=== PATIENT | female | born 1950 | race Caucasian/White ===

== ENCOUNTER 2019-01-06 16:37 | Inpatient (IN) ==
[2019-01-06 21:25] LABS: HEMATOCRIT 34.8 % (37.0-47.0); HEMOGLOBIN 11.5 g/dL (12.0-16.0); MCH 30.2 PG (27-31); MCV 91.3 FL (81-99); MPV 10.4 FL (7.4-10.4); RBC 3.81 XMIL (4.2-5.4); RDW 12.3 % (11.5-14.5); WBC 21.45 X1000 (4.8-10.8)
[2019-01-06 21:37] LABS: ALB/GLOB RATIO 0.7; ALBUMIN 3.4 g/dL (3.5-5.0); C REACTIVE PROT QUANT 88.41 mg/L (0.00-5.00); CALCIUM 10.1 mg/dL (8.8-10.2); TOTAL BILIRUBIN 0.29 mg/dL (0.20-1.00)
[2019-01-06] MEDS: CELEBREX PO SCH (21:58)
[2019-01-06] MEDS: APRESOLINE PO SCH (21:58)
[2019-01-06] MEDS: SEROQUEL PO SCH (21:58)
[2019-01-06] MEDS: ZYRTEC PO SCH (21:58)
[2019-01-06] MEDS: DESYREL PO SCH (21:59)
[2019-01-06] MEDS: SYNTHROID PO SCH (21:59)
[2019-01-06] MEDS: ZOSYN 3.375 GM in NS 50 ML IV SCH (22:43)
[2019-01-06] MEDS: COREG PO SCH (22:43)
[2019-01-06] MEDS: LEVAQUIN 500 MG/D5W 500 MG/100 ML IVPB IV SCH (23:19)
--- NOTE | 2019-01-07 01:12 | HISTORY AND PHYSICAL ---
CHIEF COMPLAINT: Complains of cough, fever and left-sided chest pain for the last few days. HISTORY OF PRESENT ILLNESS: She is a 68-year-old white female who came to my office with prior pseudomonas infection in the right middle lobe, possible mycobacterium, under the care of Dr. Earl. Chest x-ray in my office showed left lower lobe infiltrate as well as right lower lobe and middle lobe. She has extensive pleurisy. Basically admitted to the hospital with acute multilobular pneumonia. Dr. Earl was consulted. The patient was started on low dose of IV steroids and broad spectrum of antibiotics. 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 PAST SURGICAL HISTORY: Benign breast biopsies; splenectomy; hysterectomy, abdominal with cervical neck suspension in 2016; back surgery, L4-L5 fusion as well as spinal rods with thoracic spine by Dr. Ackerman. MEDICATIONS: Synthroid 175 mcg daily; Seroquel 200 daily; Hyzaar 50/12.5 two in the morning; Premarin 0.4 mg daily; Depakote 750 in the morning; cetirizine 10 daily; hydralazine 100 daily; trazodone 100 daily; Coreg 6.25 p.o. b.i.d.; Celebrex 200 p.o. b.i.d.; [place] 7.5 q.6 as needed; tizanidine 4 mg b.i.d.; Cymbalta 20 daily. ALLERGIES: Not known. HEALTH MAINTENANCE: Pneumococcal vaccine , 02/20/2018. Tetanus in 2001. Influenza vaccine in 05/2018. Mammography 08/2018. Colonoscopy 03/2008. SOCIAL HISTORY: Single, . Two children. Lives in [place]. No smoking. No alcohol. 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 FAMILY HISTORY: Father at the age of 78. Mother at the age of 90. REVIEW OF SYSTEMS: HEENT: No headache, no vision problem. No earache. No sore throat. Neck has no goiter. No lymphadenopathy. No bruit. Cardiopulmonary: Coughing, low- grade fever and left-sided chest pain. GI: No nausea, vomiting, abdominal pain. : No history of hesitancy, frequency or dysuria. Left flank pain. Neurologic: No focal symptoms or weakness. PHYSICAL EXAMINATION: VITAL SIGNS: Temperature is 97.7 degrees, blood pressure is high. Five feet 8 inches, 135 pounds. HEENT: Atraumatic, normocephalic. Pupils equal and reactive to light. TMs are normal. Nose and throat congested. NECK: Supple. No lymphadenopathy. No goiter. CHEST: Bilateral air entry with pleurisy and crackles. HEART: Sounds are regular, tachycardic. ABDOMEN: Belly is soft, nontender. Good bowel sounds. EXTREMITIES: No peripheral edema or cyanosis. NEUROLOGIC: No obvious neurological deficits. DIAGNOSTIC DATA: Chest x-ray: Multilobar pneumonia. LABORATORY DATA: White cell count 20, hematocrit 34.8, platelets 830,000. The rest of the labs are pending. ASSESSMENT AND PLAN: 1. A 68-year-old white female admitted to the hospital with history of splenectomy, autoimmune hepatitis, on immunosuppressive drugs, came in with multilobar pneumonia. History of pseudomonas in the past. Plan is Dr. Earl consult. Oxygen as needed. Intravenous Zosyn and intravenous Levaquin. 2. Bipolar disorder, on Depakote and Seroquel. 3. Hypothyroidism, on Synthroid. 4. Hypertension, on Hyzaar, hydralazine and Coreg. 5. Autoimmune hepatitis/rheumatoid and psoriatic, on Celebrex. 6. Bronchiectasis, chronic, in the right middle lobe. Seen by Dr. Earl and Dr. Ayala. 7. Chronic back pain, status post lumbar fusion by Dr. Ackerman. 8. Chronic pain, with [place]. 9. Status post cystocele repair, stable. 10. Reconcile home medicines. Discussed with Dr. Earl. Follow up on the pending labs. cc: Bryant Byrne MD [facility]ENTERKeisha
[2019-01-07] MEDS: ZOSYN 3.375 GM in NS 50 ML IV SCH ×4 (03:22→21:18)
[2019-01-07] MEDS ORDERED: CATAPRES PO ONE (03:48)
[2019-01-07] MEDS: COREG PO SCH ×3 (06:16→21:20)
[2019-01-07] MEDS ORDERED: ADVAIR 250/50 DISKUS INH SCH (07:30)
[2019-01-07] MEDS ORDERED: DEPAKOTE ER PO SCH (09:00)
[2019-01-07] MEDS ORDERED: SOLU-MEDROL IV SCH (09:00)
[2019-01-07] MEDS: ZANAFLEX PO SCH ×2 (09:10→21:20)
[2019-01-07] MEDS: NORCO-7.5 PO PRN ×2 (09:11→21:18)
[2019-01-07] MEDS: CELEBREX PO SCH ×2 (09:11→21:20)
[2019-01-07] MEDS: CYMBALTA PO SCH (09:11)
[2019-01-07] MEDS: HYZAAR 50/12.5 MG PO SCH (09:12)
--- NOTE | 2019-01-07 10:13 | Diag Imaging Result Doc PS360 ---
CHEST-2 VIEWS - 01/07/2019 INDICATION: hypoxia COMPARISON: 03/24/2018 FINDINGS: There are stable extensive spine fusion rods. There are new multifocal infiltrates in the lingula, left lower lobe, and right middle lobe. Lungs are hyperexpanded compatible with COPD. No pneumothorax or significant pleural effusion. Heart size is normal. IMPRESSION: Multilobar bilateral pneumonia. Electronically signed by Ibrahima Barragan 01/07/2019 10:10 AM
[2019-01-07] MEDS ORDERED: DILAUDID IV ONE (15:37)
[2019-01-07] MEDS: DUONEB (A & A) INH PRN (19:55)
[2019-01-07] MEDS: LEVAQUIN 500 MG/D5W 500 MG/100 ML IVPB IV SCH (21:18)
[2019-01-07] MEDS: SYNTHROID PO SCH (21:19)
[2019-01-07] MEDS: DESYREL PO SCH (21:19)
[2019-01-07] MEDS: APRESOLINE PO SCH (21:20)
[2019-01-07] MEDS: ZYRTEC PO SCH (21:20)
[2019-01-07] MEDS: SEROQUEL PO SCH (21:20)
[2019-01-07] MEDS: DEPAKOTE ER PO SCH (21:20)
[2019-01-07] MEDS: PREMARIN PO SCH (21:21)
--- NOTE | 2019-01-07 21:22 | PROGRESS NOTE ---
DATE: 01/07/2019 SUBJECTIVE: The patient is a little bit anxious, not able to sleep, headache, chronic pain and reconcile home medicine, waiting to be seen by Dr. Earl. OBJECTIVE: Vital signs: Low-grade fever. Blood pressure is high and pulse oximetry 97 percent. HEENT: Exam within normal limits. Respiratory: Extensive pleurisy. Crackles in the left base. Cardiovascular: Heart sounds are regular. Abdomen: Belly is soft, nontender. Neurological: No neurological deficits. INVESTIGATIONS: CRP was high. ProBNP was normal. ASSESSMENT AND PLAN: 1. Multilobar pneumonia. Continue IV Zosyn and Levaquin. 2. Hypertension. We will use hydralazine as needed along with home medicine. 3. Reconcile home medications. 4. Hypothyroidism on Synthroid. 5. History of bipolar disorder on current medications, and we will repeat the labs in the morning. 6. Discussed the plan of care with the family at bedside, and will follow up. LEVEL OF DOCUMENTATION: 25 minutes. cc: Bryant Byrne MD
[2019-01-07] MEDS: APRESOLINE IV PRN (23:49)
--- NOTE | 2019-01-08 02:01 | PULMONOLOGY CONSULTATION ---
DATE: 01/06/2019 REASON FOR CONSULTATION: Pneumonia and fevers. HISTORY OF PRESENT ILLNESS: Ms Rabago is a 68-year-old white female with a history of autoimmune hepatitis, prior splenectomy, and remote tobacco use, who was diagnosed with mycobacterium avium complex disease approximately 3 years ago. She did receive 3 antibiotics for this process. In March 2018, she was admitted with bilateral pulmonary infiltrates. Pulmonary consultation was performed by this practitioner and she underwent a bronchoscopy on 01/23/2018, which revealed gross purulence throughout the tracheobronchial tree. All cultures revealed Pseudomonas aeruginosa. All AFB smears were negative for AFB, and cultures did not grow Mycobacterium avium complex. She did improve with appropriate antipseudomonal treatment. The patient was evaluated by this practitioner in October. Chest x-ray, at that time, revealed chronic changes but no acute infiltrates. The patient was evaluated by Dr. Byrne, complaining of new onset fevers and left-sided chest pain. Chest x-ray was performed, which reveals new multifocal infiltrates in the lingula, left lower lobe, and right middle lobe. PAST MEDICAL HISTORY/PROBLEM LIST: 1. Multilobar pneumonia, as per above. 2. Prior treatment for Mycobacterium avium complex disease with negative bronchoscopic cultures in January 2018, as per above. 3. Autoimmune hepatitis, previously on Imuran. 4. Status post splenectomy. 5. Status post hysterectomy. 6. Bladder sling with mesh repair. 7. Cystocele repair. 8. Hypertension. 9. Status post back surgery with multiple rods present. 10. Status post hand surgery. 11. Status post toe surgery. 12. Suprasellar mass noted on CT scan in March 2010. 13. Episode of helen during previous hospitalization 1 year ago. SOCIAL HISTORY: Minimal tobacco history. No alcohol use. FAMILY HISTORY: Positive for strokes, dyslipidemia, diabetes, and hypertension. REVIEW OF SYSTEMS: Notable for fatigue, cough with minimal sputum, pleuritic chest pain, fevers, generalized weakness. PHYSICAL EXAMINATION: General: Reveals a thin white female with a BMI of 20, who does report left-sided pain with movement or cough. Vital signs: Blood pressure 159/101, heart rate 88, respiratory rate 20, oxygen saturation 97% on room air. HEENT: Pupils are equal and reactive. Oropharynx is clear. Neck: Supple. Chest: Reveals bilateral rhonchi with crackles at the left base. Cardiac: S1, S2. Abdomen: Soft. Extremities: Without edema. LABORATORIES: White blood count 21.45, hemoglobin 11.5, platelet count 830,000. Chest x-ray as per HPI. Urine culture is growing a gram-negative mariajose. No blood cultures identified. IMPRESSION: A 68-year-old with prior multilobar pneumonia, prior splenectomy, who presents with fevers, leukocytosis, multilobar pneumonia. The patient's chest x-ray had not changed in October, and this represents a significant change. With the onset of fevers, marked change in x-ray, this likely represents an active bacterial infection. The patient has previously been cultured with Pseudomonas and this organism is also suspected. The patient's prior cultures 1 year ago were negative for AFB, and the rapid progression of her symptoms would not be typical for a Mycobacterium organism. RECOMMENDATIONS: 1. Increase Zosyn dose to 4.5 g q.6 hours, which is the pseudomonal dosing regimen. 2. Continue Levaquin. 3. Consider tapering steroids if she develops signs of helen. 4. Continue bronchial hygiene. 5. Follow clinical course. If she does not have expected improvement, then bronchoscopy will be considered. cc: MD Bryant Herron MD
[2019-01-08] MEDS: NORCO-7.5 PO PRN ×2 (04:33→18:23)
[2019-01-08] MEDS: ZOSYN 4.5 GM in NS 100 ML IV SCH ×4 (06:19→23:17)
[2019-01-08 06:54] LABS: BASO# 0.03 X1000 (0.0-0.2); BASO% 0.2 % (0.0-0.8); EOS# 0.02 X1000 (0.0-0.7); EOS% 0.1 % (0.0-10.0); HEMATOCRIT 30.9 % (37.0-47.0); HEMOGLOBIN 10.5 g/dL (12.0-16.0); IMM GRAN% 0.6 % (0.0-0.5); LYMPH# 2.91 X1000 (1.2-3.4); LYMPH% 17.7 % (20.5-51.1); MCH 30.4 PG (27-31); MCV 89.6 FL (81-99); MONO# 2.22 X1000 (0.11-0.59); MONO% 13.5 % (1.7-9.3); NEUT# 11.12 X1000 (1.4-6.5); NEUT% 67.9 % (42.2-75.2); PLT 697 X1000 (130-400); RBC 3.45 XMIL (4.2-5.4)
[2019-01-08 07:13] LABS: CALCIUM 8.8 mg/dL (8.8-10.2); CREATININE 1.1 mg/dL (0.5-0.9); POTASSIUM 4.2 mmol/L (3.5-5.1)
[2019-01-08] MEDS: DUONEB (A & A) INH PRN ×2 (08:48→15:58)
[2019-01-08] MEDS: COREG PO SCH ×2 (09:13→19:55)
[2019-01-08] MEDS: ZANAFLEX PO SCH ×2 (09:13→19:55)
[2019-01-08] MEDS: CYMBALTA PO SCH (09:13)
[2019-01-08] MEDS: HYZAAR 50/12.5 MG PO SCH (09:13)
[2019-01-08] MEDS: CELEBREX PO SCH ×2 (09:13→19:56)
[2019-01-08] MEDS: APRESOLINE IV PRN ×2 (09:28→14:26)
[2019-01-08] MEDS: SOLU-MEDROL IV SCH (09:45)
[2019-01-08] MEDS: NS 1,000 ML IV SCH ×2 (09:46→23:17)
[2019-01-08] MEDS ORDERED: KLONOPIN PO SCH ×2 (17:00)
[2019-01-08] MEDS ORDERED: KLONOPIN PO PRN (17:01)
[2019-01-08] MEDS: KLONOPIN PO PRN ×2 (17:06→23:50)
[2019-01-08] MEDS ORDERED: CATAPRES PO ONE (18:10)
[2019-01-08] MEDS: LEVAQUIN 500 MG/D5W 500 MG/100 ML IVPB IV SCH (19:53)
[2019-01-08] MEDS: APRESOLINE PO SCH (19:54)
[2019-01-08] MEDS: ZYRTEC PO SCH (19:55)
[2019-01-08] MEDS: SEROQUEL PO SCH (19:55)
[2019-01-08] MEDS: SYNTHROID PO SCH (19:56)
[2019-01-08] MEDS: PREMARIN PO SCH (19:56)
[2019-01-08] MEDS: DEPAKOTE ER PO SCH (19:56)
[2019-01-08] MEDS: DESYREL PO SCH (20:21)
--- NOTE | 2019-01-09 02:11 | PROGRESS NOTE ---
DATE: 01/08/2019 SUBJECTIVE: The patient is confused. Blood pressure is running high. Nonproductive cough. Pain is adequately controlled. I appreciate Dr. Earl's consult. PHYSICAL EXAMINATION: Vital signs: Temperature is 97 degrees, blood pressure is 160/102. Respiratory: She is not in respiratory distress. Slightly dry. Decreased pleurisy. Crackles on the lung base. Rest of the exam is benign. INVESTIGATIONS: White cell count 16, hematocrit 30.9, platelets 697,000. Sedimentation rate is 110. Sodium 124, potassium 4.2, BUN 26, creatinine 1.1. Urine cultures grew E coli. ASSESSMENT AND PLAN: 1. Multilobar pneumonia, community-acquired. Immunosuppressive drugs. Aggressive IV antibiotics. Incentive spirometry. 2. Hyponatremia due to dehydration. Continue IV fluids. 3. Urinary tract infection. Sensitive to Zosyn. 4. Escherichia coli. Extended spectrum beta-lactamase negative. 5. Uncontrolled hypertension. Will use the clonidine and hydralazine as needed. 6. History of bipolar disorder, manic phase. I agree with Dr. Earl, I am going to cut down the prednisone IV 20 mg daily. 7. Repeat the labs in the morning and will follow up. LEVEL OF DOCUMENTATION: 25 minutes. cc: Bryant Byrne MD
[2019-01-09] MEDS: CELEBREX PO SCH ×3 (02:16→20:52)
[2019-01-09] MEDS: PREMARIN PO SCH ×2 (02:16→20:53)
[2019-01-09] MEDS: SEROQUEL PO SCH ×2 (02:16→20:51)
[2019-01-09] MEDS: APRESOLINE PO SCH ×2 (02:16→20:51)
[2019-01-09] MEDS: COREG PO SCH ×3 (02:16→20:52)
[2019-01-09] MEDS: DEPAKOTE ER PO SCH ×2 (02:16→20:52)
[2019-01-09] MEDS: SYNTHROID PO SCH ×2 (02:17→20:52)
[2019-01-09] MEDS: ZANAFLEX PO SCH ×3 (02:17→20:53)
[2019-01-09] MEDS: ZYRTEC PO SCH ×2 (02:17→20:52)
[2019-01-09] MEDS: ZOSYN 4.5 GM in NS 100 ML IV SCH ×4 (05:52→23:31)
[2019-01-09] MEDS: APRESOLINE IV PRN ×2 (05:55→16:09)
[2019-01-09 07:32] LABS: BASO# 0.06 X1000 (0.0-0.2); BASO% 0.4 % (0.0-0.8); EOS# 0.04 X1000 (0.0-0.7); EOS% 0.3 % (0.0-10.0); HEMATOCRIT 31.6 % (37.0-47.0); HEMOGLOBIN 10.4 g/dL (12.0-16.0); IMM GRAN# 0.09 X1000 (0.0-0.04); IMM GRAN% 0.6 % (0.0-0.5); LYMPH% 21.9 % (20.5-51.1); MCH 30.1 PG (27-31); MCHC 32.9 g/dL (33-37); MCV 91.6 FL (81-99); MONO# 2.36 X1000 (0.11-0.59); MONO% 15.7 % (1.7-9.3); NEUT# 9.22 X1000 (1.4-6.5); NEUT% 61.1 % (42.2-75.2); PLT 639 X1000 (130-400); RBC 3.45 XMIL (4.2-5.4); RDW 12.1 % (11.5-14.5); WBC 15.07 X1000 (4.8-10.8)
[2019-01-09 07:36] LABS: CALCIUM 8.9 mg/dL (8.8-10.2); CREATININE 1.1 mg/dL (0.5-0.9); POTASSIUM 3.8 mmol/L (3.5-5.1)
[2019-01-09 07:50] LABS: LYMPHS 23 % (21-51); MONO 16 % (1-9); SEGS 61 % (42-75)
--- NOTE | 2019-01-09 08:26 | PULMONOLOGY PROGRESS NOTE ---
DATE: 01/08/2019 SUBJECTIVE: The patient is awake and alert. She does report headache earlier today. She has had some fluctuating blood pressures along with pain. OBJECTIVE: Vital Signs: The patient has been afebrile for the last 24 hours. Blood pressure 1/0 6, chloride 167/102, heart rate 61, respiratory rate 18, oxygen saturation 97% HEENT pupils are equal and reactive. Oropharynx is clear neck is supple chest reveals crackles bilaterally cardiac exam regular rate and rhythm abdomen is soft extremities without edema. LABORATORIES: White blood count has decreased to 16.4, hemoglobin 10.5, platelet count 697,000 sodium 124, potassium 4.2, chloride 88, bicarbonate 37, BUN 26, creatinine 1.1. TSH is low at 0.8. Urine culture reveals E coli. Sputum culture has been done, collected. IMPRESSION: A 68-year-old with remote history of Mycobacterium complex disease with admission last year with all cultures from bronchoscopy revealing Pseudomonas aeruginosa. She now has bilateral infiltrates. The patient has fevers, hypertension, iatrogenic hyperthyroidism, anxiety/component of helen, and headache. RECOMMENDATIONS: 1. Continue current antibiotic regimen. 2. Chest x-ray tomorrow. 3. Follow-up sodium level following initiation of saline. 4. Continue bronchial hygiene. 5. If the patient does not improve, bronchoscopy will be considered next week. cc: MD Bryant Herron MD
[2019-01-09] MEDS: DUONEB (A & A) INH PRN ×2 (08:34→16:55)
[2019-01-09] MEDS: CYMBALTA PO SCH (09:06)
[2019-01-09] MEDS: SOLU-MEDROL IV SCH (09:06)
[2019-01-09] MEDS: HYZAAR 50/12.5 MG PO SCH (09:06)
--- NOTE | 2019-01-09 09:26 | Diag Imaging Result Doc PS360 ---
CHEST-2 VIEWS - 01/09/2019 INDICATION: abnormal exam COMPARISON: 01/07/2019 FINDINGS: There is worsening mild infiltrate in the right lower lobe with loss of the right hemidiaphragm. There is some stable right middle lobe and lingular infiltrate. Heart size remains normal. No pneumothorax or significant pleural effusion. IMPRESSION: Worsening infiltrate in the right lower lobe. Multilobar bilateral infiltrate. Electronically signed by Ibrahima Barragan 01/09/2019 9:24 AM
[2019-01-09] MEDS: NORCO-7.5 PO PRN ×2 (10:29→22:18)
[2019-01-09] MEDS: NS 1,000 ML IV SCH ×3 (12:32→23:31)
[2019-01-09] MEDS: KLONOPIN PO PRN (18:56)
--- NOTE | 2019-01-09 19:59 | PROGRESS NOTE ---
DATE: 01/09/2019 SUBJECTIVE: Patient is very anxious and complains of feet pain and elevated blood pressure. She has bilateral lateral malleolus crusted lesions, and decreased cough, decreased pain. OBJECTIVE: Temperature is 97 degrees, blood pressure is 154/83. Very anxious. Decreased pleurisy. Heart sounds are regular. Rest of the exam is benign. INVESTIGATIONS: White cell count 15, hematocrit 31.6, platelets 639,000. Sodium 128, potassium 3.8, BUN 23, creatinine 1.9. Free T4 is slightly high at 1.97. TSH is low. Chest x-ray: Stable multilobar infiltrates. ASSESSMENT AND PLAN: 1. Multilobar bilateral pneumonia, previously Pseudomonas aeruginosa. Aggressive treatment with Levaquin and Zosyn. 2. Urinary tract infection due to Escherichia coli. Continue on intravenous Zosyn. 3. Bilateral lateral malleolus skin ulcers. She is going to follow up with performance improvement coordinator. 4. Hyponatremia, on intravenous fluids. Follow up on BMP in the morning. 5. Hypothyroidism, slightly elevated. We can decrease the Synthroid to 150 mcg once a day. 6. Elevated blood pressure due to the pain. We will use the clonidine and hydralazine as needed for systolic blood pressure more than 160, and patient is anxious to go home and continue present treatment. LEVEL OF DOCUMENTATION: 25 minutes. cc: Bryant Byrne MD
[2019-01-09] MEDS: DESYREL PO SCH (20:51)
[2019-01-09] MEDS: LEVAQUIN 500 MG/D5W 500 MG/100 ML IVPB IV SCH (20:53)
[2019-01-10] MEDS: APRESOLINE IV PRN ×2 (04:56→12:34)
[2019-01-10] MEDS: ZOSYN 4.5 GM in NS 100 ML IV SCH ×4 (06:32→23:54)
[2019-01-10 07:25] LABS: BASO# 0.03 X1000 (0.0-0.2); BASO% 0.2 % (0.0-0.8); EOS# 0.03 X1000 (0.0-0.7); EOS% 0.2 % (0.0-10.0); HEMATOCRIT 31.2 % (37.0-47.0); HEMOGLOBIN 10.6 g/dL (12.0-16.0); IMM GRAN# 0.13 X1000 (0.0-0.04); IMM GRAN% 0.9 % (0.0-0.5); LYMPH# 3.24 X1000 (1.2-3.4); LYMPH% 21.4 % (20.5-51.1); MCH 30.4 PG (27-31); MCV 89.4 FL (81-99); MONO% 14.5 % (1.7-9.3); MPV 10.2 FL (7.4-10.4); NEUT# 9.53 X1000 (1.4-6.5); NEUT% 62.8 % (42.2-75.2); PLT 623 X1000 (130-400); RBC 3.49 XMIL (4.2-5.4); RDW 11.9 % (11.5-14.5); WBC 15.16 X1000 (4.8-10.8)
[2019-01-10 07:59] LABS: CALCIUM 8.7 mg/dL (8.8-10.2); CREATININE 1.1 mg/dL (0.5-0.9); POTASSIUM 3.8 mmol/L (3.5-5.1)
[2019-01-10] MEDS: CYMBALTA PO SCH (09:22)
[2019-01-10] MEDS: HYZAAR 50/12.5 MG PO SCH (09:22)
[2019-01-10] MEDS: CELEBREX PO SCH ×2 (09:23→21:37)
[2019-01-10] MEDS: COREG PO SCH ×2 (09:23→21:33)
[2019-01-10] MEDS: KLONOPIN PO PRN ×2 (09:23→21:34)
[2019-01-10] MEDS: ZANAFLEX PO SCH ×2 (09:23→21:35)
[2019-01-10] MEDS: NORCO-7.5 PO PRN ×2 (09:23→21:32)
[2019-01-10] MEDS: SOLU-MEDROL IV SCH (09:24)
[2019-01-10] MEDS ORDERED: CALMOSEPTINE OINTMENT TOP PRN (15:02)
[2019-01-10] MEDS: NS 1,000 ML IV SCH ×2 (17:57→22:51)
[2019-01-10] MEDS: IMODIUM PO PRN ×2 (18:06→21:40)
[2019-01-10] MEDS: LEVAQUIN 500 MG/D5W 500 MG/100 ML IVPB IV SCH (21:31)
[2019-01-10] MEDS: APRESOLINE PO SCH (21:32)
[2019-01-10] MEDS: DESYREL PO SCH (21:34)
[2019-01-10] MEDS: SYNTHROID PO SCH (21:35)
[2019-01-10] MEDS: SEROQUEL PO SCH (21:35)
[2019-01-10] MEDS: ZYRTEC PO SCH (21:36)
[2019-01-10] MEDS: PREMARIN PO SCH (21:38)
[2019-01-10] MEDS: FISH OIL CONCENTRATE PO SCH ×2 (21:38→21:42)
--- NOTE | 2019-01-10 22:34 | PROGRESS NOTE ---
DATE: 01/10/2019 SUBJECTIVE: The patient is still exhibiting manic phase. Apprehensive, talkative. Nonproductive cough. OBJECTIVE: On exam, temperature is 98 degrees, pulse is 63, blood pressure 179/96. HEENT exam within normal limits. Decreased, pleuritic rub and crackles in the left base. Heart sounds are regular. LABORATORY DATA: Urine culture showing E. Coli. White cell count 15, hematocrit 31, platelets 623,000. Sodium 126, potassium 3.8, BUN 22, creatinine 1.9. ASSESSMENT AND PLAN: 1. Hyperthyroidism. Decrease Synthroid dose 150 mcg daily. 2. Bilateral pneumonia, community acquired, immunosuppression. Continue on intravenous Zosyn and Levaquin, discontinue prednisone. 3. Hypertension, stable. 4. Escherichia coli. Continue intravenous Zosyn. 5. Bipolar. Continue present treatment with Depakote, Seroquel. 6. Chronic back pain, on Maribel and Celebrex. 7. Anxiety, on Klonopin. 8. We will repeat the chest x-ray in the morning as well as blood tests. cc: Bryant Byrne MD
[2019-01-10] MEDS: DEPAKOTE ER PO SCH (22:51)
[2019-01-11] MEDS: ZOSYN 4.5 GM in NS 100 ML IV SCH ×3 (05:29→18:52)
[2019-01-11] MEDS: APRESOLINE IV PRN (05:29)
[2019-01-11 06:55] LABS: BASO# 0.04 X1000 (0.0-0.2); BASO% 0.2 % (0.0-0.8); EOS# 0.06 X1000 (0.0-0.7); EOS% 0.3 % (0.0-10.0); HEMATOCRIT 28.8 % (37.0-47.0); HEMOGLOBIN 9.8 g/dL (12.0-16.0); IMM GRAN# 0.15 X1000 (0.0-0.04); IMM GRAN% 0.8 % (0.0-0.5); LYMPH# 3.19 X1000 (1.2-3.4); LYMPH% 18.1 % (20.5-51.1); MCH 30.7 PG (27-31); MCV 90.3 FL (81-99); MONO% 15.3 % (1.7-9.3); MPV 10.1 FL (7.4-10.4); NEUT# 11.53 X1000 (1.4-6.5); NEUT% 65.3 % (42.2-75.2); PLT 548 X1000 (130-400); RBC 3.19 XMIL (4.2-5.4); RDW 12.1 % (11.5-14.5); WBC 17.67 X1000 (4.8-10.8)
[2019-01-11 07:25] LABS: CALCIUM 8.7 mg/dL (8.8-10.2); CREATININE 1.1 mg/dL (0.5-0.9); POTASSIUM 3.9 mmol/L (3.5-5.1)
--- NOTE | 2019-01-11 08:58 | Diag Imaging Result Doc PS360 ---
EXAM: CHEST-2 VIEWS HISTORY: hypoxia TECHNIQUE: Chest two views COMPARISON: 01/09/2019 FINDINGS: The lungs are hyperexpanded. The heart is not enlarged. The vessels are small. There are basilar infiltrates. No pleural effusions. IMPRESSION: No improvement in the basilar pneumonia. Electronically signed by Pepe Jon 01/11/2019 8:55 AM
[2019-01-11] MEDS: HYZAAR 50/12.5 MG PO SCH (09:47)
[2019-01-11] MEDS: NORCO-7.5 PO PRN ×2 (09:48→20:52)
[2019-01-11] MEDS: KLONOPIN PO PRN ×2 (09:48→20:53)
[2019-01-11] MEDS: IMODIUM PO PRN ×2 (09:48→21:07)
[2019-01-11] MEDS: CELEBREX PO SCH ×2 (09:48→20:58)
[2019-01-11] MEDS: ZANAFLEX PO SCH ×2 (09:48→20:57)
[2019-01-11] MEDS: CYMBALTA PO SCH (09:48)
[2019-01-11] MEDS: COREG PO SCH ×2 (09:48→20:53)
--- NOTE | 2019-01-11 14:03 | PROGRESS NOTE ---
DATE: 01/11/2019 SUBJECT: The patient is anxious to go home and patient still has some pain on the left side of the chest. Had diarrhea yesterday. Stool cultures were obtained and eating well. EXAMINATION: Temperature is 97.9 degrees, pulse is 80, blood pressure is 152/84, room air 98%.HEENT: Within normal limits. Decreased crackles on the left side. Rest of the exam is benign. DATA: Chest x-ray left lower lobe pneumonia. No improvement and stool cultures basically so far C. difficile was negative. Urine cultures E coli. LABS: CBC. White cell count 17, hematocrit 28, platelets 548,000. Sodium 133, potassium 3.9, BUN 20, creatinine 1.91. ASSESSMENT AND PLAN: 1. Multilobar pneumonia, nonproductive cough and on intravenous Zosyn and Levaquin. No better, consider CT of the chest. 2. Escherichia coli extended spectrum beta-lactamase negative. Continue IV Zosyn. 3. Diarrhea, nonspecific. Ruled out C difficile colitis. Continue on probiotics. 4. Hyponatremia is stable. Continue on IV fluids and hypertension is stable and based on the CT, further recommendations will be followed. Bipolar disorder, stable. Continue present treatment and explained the patient's sister at bedside. LEVEL OF DOCUMENTATION: 25 minutes. cc: Bryant Byrne MD
--- NOTE | 2019-01-11 15:29 | Diag Imaging Result Doc PS360 ---
EXAM: CT THORAX W/CONTRAST HISTORY: pneumonia TECHNIQUE: Emergent CT of the chest with intravenous contrast COMPARISON: 02/11/2018 FINDINGS: There are tiny bilateral pleural effusions. Dense left lower lobe pneumonia with air bronchograms. Multiple small scattered nodules similar to the prior study. Scarring and small infiltrates in the right lower lobe. There are multiple calcified mediastinal and hilar lymph nodes and scattered granuloma. Normal opacification of the pulmonary arteries. No cardiomegaly. IMPRESSION: Left lower lobe pneumonia This exam was performed using automated exposure control, adjustment of mA or kV according to patient size, and/or use of iterative reconstruction technique. Electronically signed by Pepe Jon 01/11/2019 3:26 PM
[2019-01-11] MEDS: NS 1,000 ML IV SCH (15:39)
[2019-01-11] MEDS: LEVAQUIN 500 MG/D5W 500 MG/100 ML IVPB IV SCH (20:50)
[2019-01-11] MEDS: APRESOLINE PO SCH (20:55)
[2019-01-11] MEDS: DESYREL PO SCH (20:56)
[2019-01-11] MEDS: SEROQUEL PO SCH (20:57)
[2019-01-11] MEDS: SYNTHROID PO SCH (20:57)
[2019-01-11] MEDS: DEPAKOTE ER PO SCH (20:58)
[2019-01-11] MEDS: FISH OIL CONCENTRATE PO SCH (20:59)
[2019-01-11] MEDS: ZYRTEC PO SCH (20:59)
[2019-01-11] MEDS: PREMARIN PO SCH (20:59)
[2019-01-12] MEDS: NS 1,000 ML IV SCH ×3 (01:13→15:31)
[2019-01-12] MEDS: ZOSYN 4.5 GM in NS 100 ML IV SCH ×4 (01:22→18:22)
[2019-01-12] MEDS: APRESOLINE IV PRN (04:56)
[2019-01-12] MEDS: KLONOPIN PO PRN ×2 (04:56→20:38)
[2019-01-12 06:51] LABS: BASO# 0.08 X1000 (0.0-0.2); BASO% 0.4 % (0.0-0.8); EOS# 0.37 X1000 (0.0-0.7); EOS% 1.9 % (0.0-10.0); HEMATOCRIT 30.5 % (37.0-47.0); HEMOGLOBIN 10.2 g/dL (12.0-16.0); IMM GRAN# 0.17 X1000 (0.0-0.04); IMM GRAN% 0.9 % (0.0-0.5); LYMPH# 3.01 X1000 (1.2-3.4); LYMPH% 15.4 % (20.5-51.1); MCH 30.2 PG (27-31); MCHC 33.4 g/dL (33-37); MCV 90.2 FL (81-99); MONO# 2.49 X1000 (0.11-0.59); MONO% 12.8 % (1.7-9.3); MPV 10.3 FL (7.4-10.4); NEUT# 13.37 X1000 (1.4-6.5); NEUT% 68.6 % (42.2-75.2); PLT 558 X1000 (130-400); RBC 3.38 XMIL (4.2-5.4); RDW 12.4 % (11.5-14.5); WBC 19.49 X1000 (4.8-10.8)
[2019-01-12 07:03] LABS: CALCIUM 8.9 mg/dL (8.8-10.2); CREATININE 1.2 mg/dL (0.5-0.9); POTASSIUM 3.8 mmol/L (3.5-5.1)
[2019-01-12 07:22] LABS: ANISOCYTOSIS 1+; LYMPHS 20 % (21-51); MONO 14 % (1-9); SEGS 64 % (42-75)
[2019-01-12] MEDS: NORCO-7.5 PO PRN ×2 (08:32→20:38)
[2019-01-12] MEDS: CELEBREX PO SCH ×2 (08:33→20:41)
[2019-01-12] MEDS: HYZAAR 50/12.5 MG PO SCH (08:33)
[2019-01-12] MEDS: IMODIUM PO PRN (08:33)
[2019-01-12] MEDS: CULTURELLE PO SCH (08:34)
[2019-01-12] MEDS: COREG PO SCH ×2 (08:34→20:42)
[2019-01-12] MEDS: ZANAFLEX PO SCH ×2 (08:34→20:42)
[2019-01-12] MEDS: CYMBALTA PO SCH (08:34)
[2019-01-12] MEDS: DUONEB (A & A) INH PRN ×3 (10:49→19:10)
--- NOTE | 2019-01-12 14:47 | PROGRESS NOTE ---
DATE: 01/12/2019 SUBJECTIVE: Ms. Rabago is on Levaquin and piperacillin. She has left lower lobe pneumonia. She has chronic diarrhea. Her Clostridium difficile is negative. CT scan of the chest revealed presence of left lower lobe pneumonia. White count is 19.49, hemoglobin 10.2, hematocrit 30.5. Her creatinine is 1.2. Overall condition is stable. However, she insists on going home. We are going to hold on to her and continue her antibiotics, which are Levaquin and piperacillin. -0 cc: MD Bryant Osman MD
[2019-01-12] MEDS: LEVAQUIN 500 MG/D5W 500 MG/100 ML IVPB IV SCH (20:37)
[2019-01-12] MEDS: APRESOLINE PO SCH (20:40)
[2019-01-12] MEDS: FISH OIL CONCENTRATE PO SCH (20:40)
[2019-01-12] MEDS: SYNTHROID PO SCH (20:41)
[2019-01-12] MEDS: SEROQUEL PO SCH (20:41)
[2019-01-12] MEDS: DEPAKOTE ER PO SCH (20:41)
[2019-01-12] MEDS: PREMARIN PO SCH (20:42)
[2019-01-12] MEDS: ZYRTEC PO SCH (20:42)
[2019-01-12] MEDS: DESYREL PO SCH (20:42)
[2019-01-13] MEDS: ZOSYN 4.5 GM in NS 100 ML IV SCH ×4 (00:11→18:03)
[2019-01-13] MEDS: DUONEB (A & A) INH PRN ×3 (03:47→15:40)
[2019-01-13] MEDS: NS 1,000 ML IV SCH ×2 (06:47→21:37)
[2019-01-13 07:48] LABS: BASO% 0.5 % (0.0-0.8); EOS# 0.58 X1000 (0.0-0.7); EOS% 2.6 % (0.0-10.0); HEMOGLOBIN 10.3 g/dL (12.0-16.0); IMM GRAN# 0.16 X1000 (0.0-0.04); IMM GRAN% 0.7 % (0.0-0.5); LYMPH# 3.55 X1000 (1.2-3.4); MCH 30.3 PG (27-31); MCHC 33.2 g/dL (33-37); MCV 91.2 FL (81-99); MONO# 2.14 X1000 (0.11-0.59); MONO% 9.6 % (1.7-9.3); NEUT# 15.69 X1000 (1.4-6.5); NEUT% 70.6 % (42.2-75.2); PLT 576 X1000 (130-400); RDW 12.8 % (11.5-14.5); WBC 22.22 X1000 (4.8-10.8)
[2019-01-13 08:12] LABS: CALCIUM 8.6 mg/dL (8.8-10.2); POTASSIUM 4.1 mmol/L (3.5-5.1)
[2019-01-13 08:14] LABS: EOS 8 % (1-10); LYMPHS 10 % (21-51); MONO 4 % (1-9); SEGS 76 % (42-75)
[2019-01-13] MEDS: NORCO-7.5 PO PRN ×2 (09:43→21:38)
[2019-01-13] MEDS: IMODIUM PO PRN ×2 (09:48→22:18)
[2019-01-13] MEDS: KLONOPIN PO PRN ×2 (09:48→21:38)
[2019-01-13] MEDS: COREG PO SCH ×2 (09:49→21:38)
[2019-01-13] MEDS: CYMBALTA PO SCH (09:49)
[2019-01-13] MEDS: ZANAFLEX PO SCH ×2 (09:49→21:38)
[2019-01-13] MEDS: CELEBREX PO SCH ×2 (09:50→21:38)
[2019-01-13] MEDS: CULTURELLE PO SCH (09:50)
[2019-01-13] MEDS: HYZAAR 50/12.5 MG PO SCH (09:50)
--- NOTE | 2019-01-13 21:27 | PROGRESS NOTE ---
DATE: 01/13/2019 SUBJECTIVE: The patient is anxious to go home. CT scan was done over the weekend. It showed dense left lower lobe pneumonia. She does not have any productive cough, and the patient has been on antibiotics. OBJECTIVE: Vital signs: She is afebrile. Temperature is 97 degrees, pulse 60, blood pressure is 136/78. HEENT Exam: Within normal limits. Respiratory: Decreased pleurisy, rales in the left base. Cardiovascular: Heart sounds are regular. Abdomen: Belly is soft, nontender. No obvious deficits noted. CBC: White cell count 22, hematocrit 31, platelets 576,000. SMA7: Sodium 136, potassium 4.1, chloride 102, BUN 16, creatinine 1.0. ASSESSMENT AND PLAN: 1. Left lower lobe pneumonia on CT, not resolving. Increased white cell count. Continue on present IV antibiotics with Zosyn 4.5 g q.6 and Levaquin 500 q.12. 2. Diarrhea, rule out Clostridium difficile on probiotics. 3. Bipolar disorder, manic phase, stable. 4. Urinary tract infection, Escherichia coli. Stable. 5. Hypothyroidism. Decrease Synthroid dose to 150 mcg once a day. 6. Hypertension is stable, and we will repeat the chest x-ray in the morning as well as CBC. 7. Hyponatremia is better and we will discuss with Dr. Earl whether she needs a bronchoscopy or not. LEVEL OF DOCUMENTATION: 25 minutes. cc: Bryant Byrne MD
[2019-01-13] MEDS: LEVAQUIN 500 MG/D5W 500 MG/100 ML IVPB IV SCH (21:37)
[2019-01-13] MEDS: DESYREL PO SCH (21:38)
[2019-01-13] MEDS: APRESOLINE PO SCH (21:38)
[2019-01-13] MEDS: FISH OIL CONCENTRATE PO SCH (21:38)
[2019-01-13] MEDS: ZYRTEC PO SCH (21:38)
[2019-01-13] MEDS: SEROQUEL PO SCH (21:39)
[2019-01-13] MEDS: SYNTHROID PO SCH (21:39)
[2019-01-13] MEDS: DEPAKOTE ER PO SCH (22:04)
[2019-01-13] MEDS: PREMARIN PO SCH (22:05)
--- NOTE | 2019-01-13 22:38 | PULMONOLOGY PROGRESS NOTE ---
DATE: 01/13/2019 SUBJECTIVE: The patient expressed some anger about still being in the hospital and about having her IV beep for an hour before it was turned off. It appears she was pushing the wrong button to have nurses come to the bedside. The patient had a CT scan over the weekend, which confirmed a dense left lower lobe pneumonia. OBJECTIVE: Vital Signs: The patient has been afebrile for the last 24 hours. Blood pressure 136/78, heart rate 73, respiratory rate 15, oxygen saturation 95% on room air. HEENT: Pupils are equal and reactive. Oropharynx appears clear. Neck: Supple. Chest: Reveals decreased breath sounds left base. Cardiac exam: S1, S2. Abdomen: Soft. Extremities: Without edema. LABORATORIES: White blood count 22,000, hemoglobin 10.3, platelet count 576,000. Sodium 136, potassium 4.1, chloride 102, bicarbonate 23, BUN 16, creatinine 1.0. IMPRESSION: A 68-year-old with: 1. Left lower lobe pneumonia. 2. Remote history of Mycobacterium avium complex disease with negative cultures from bronchoscopy last year. 3. Multifocal Pseudomonas aeruginosa pneumonia last year. 4. Bipolar disorder, currently in a mild manic phase. 5. Iatrogenic hyperthyroidism. 6. Hypernatremia, which has resolved. RECOMMENDATIONS: 1. Continue current antibiotic regimen. 2. Continue bronchial hygiene. 3. Consider PICC line placement with outpatient IV antibiotics. The patient could be placed on cefepime with followup chest x-ray in [address] Byrne thinks she can be managed as an outpatient from a mental health standpoint. 4. Consider bronchoscopy, but cultures will likely be negative given current antibiotic regimen. cc: MD Bryant Herron MD
[2019-01-14] MEDS: ZOSYN 4.5 GM in NS 100 ML IV SCH ×5 (00:59→23:39)
[2019-01-14 04:05] LABS: BLOOD TYPE ARTERIAL; SAMPLE BLOOD
[2019-01-14 04:06] LABS: ALLEN TEST YES; HCO3-(ACT) 24.1 mmoll (20.0-26.0); METHB 0.1 % (0.0-1.5); MODALITY ROOM AIR; O2(CT) 10.6 mL/dL (15.0-23.0); O2HB 93.6 % (95.0-99.0); PCO2(98.6) 42 mmHg (35-45); PO2(98.6) 69 mmHg (60-100); SAO2 93.7 % (95.0-100.0); pH(98.6) 7.37 (7.35-7.45)
[2019-01-14] MEDS: KLONOPIN PO PRN (05:58)
[2019-01-14 08:01] LABS: BASO# 0.07 X1000 (0.0-0.2); BASO% 0.4 % (0.0-0.8); EOS# 0.88 X1000 (0.0-0.7); EOS% 5.5 % (0.0-10.0); HEMATOCRIT 31.1 % (37.0-47.0); HEMOGLOBIN 10.4 g/dL (12.0-16.0); IMM GRAN# 0.16 X1000 (0.0-0.04); LYMPH# 3.03 X1000 (1.2-3.4); LYMPH% 18.8 % (20.5-51.1); MCH 30.6 PG (27-31); MCHC 33.4 g/dL (33-37); MCV 91.5 FL (81-99); MONO# 1.78 X1000 (0.11-0.59); MPV 10.2 FL (7.4-10.4); NEUT% 63.3 % (42.2-75.2); PLT 557 X1000 (130-400); RDW 13.1 % (11.5-14.5); WBC 16.12 X1000 (4.8-10.8)
[2019-01-14 08:08] LABS: AGAP 11; BUN 14 mg/dL (8-22); CALCIUM 8.8 mg/dL (8.8-10.2); CHLORIDE 105 mmol/L (98-107); COSMO 281; CREATININE 0.9 mg/dL (0.5-0.9); ESTIMATED GFR > 60; GLUCOSE 93 mg/dL (70-104); POTASSIUM 4.1 mmol/L (3.5-5.1); SODIUM 141 mmol/L (136-145); TCO2 25 mmol/L (25-35)
--- NOTE | 2019-01-14 08:14 | Diag Imaging Result Doc PS360 ---
EXAM: CHEST-2 VIEWS HISTORY: hypoxia TECHNIQUE: Chest two views COMPARISON: 01/14/2019 FINDINGS: Dense left lower lobe pneumonia as well as infiltrates in the lingular segment of the left upper lobe persist. There are small right lower lobe infiltrates. No cardiomegaly. No pulmonary edema. Small pleural effusions. IMPRESSION: Bilateral pneumonia, left greater than right, with no interval improvement. Electronically signed by Pepe Jon 01/14/2019 8:12 AM
[2019-01-14] MEDS: ZANAFLEX PO SCH ×2 (09:02→20:49)
[2019-01-14] MEDS: CULTURELLE PO SCH (09:03)
[2019-01-14] MEDS: HYZAAR 50/12.5 MG PO SCH (09:03)
[2019-01-14] MEDS: CELEBREX PO SCH ×2 (09:03→20:49)
[2019-01-14] MEDS: COREG PO SCH ×2 (09:03→20:49)
[2019-01-14] MEDS: CYMBALTA PO SCH (09:03)
[2019-01-14] MEDS: NORCO-7.5 PO PRN ×2 (09:07→20:48)
[2019-01-14 14:56] LABS: INR 1.03; PROTIME 14.4 Seconds (11.0-16.0)
--- NOTE | 2019-01-14 19:43 | PROGRESS NOTE ---
DATE: 01/14/2019 SUBJECTIVE: Patient is anxious to go home. She has complaints of pain. Pneumonia is not getting better. Chest x-ray is also worsening today. OBJECTIVE: On exam, temperature is 97.5 degrees, pulse 84, blood pressure 172/92. Decreased crackles on the left side. Heart sounds are regular. No obvious deficits. INVESTIGATIONS: CBC: White cell count 16, hematocrit 31, platelets 557,000. ABG: pH is 7.37, pCO2 42, pO2 69. SMA-7 is normal. ASSESSMENT AND PLAN: 1. Persistent left lower lobe pneumonia, immune compromised. I agree with Dr. Earl. Will place a peripherally inserted central catheter line consult and schedule for outpatient antibiotic. Repeat white cell count is coming down. Chest x-ray is not improving. 2. Hyponatremia, better. 3. Escherichia coli urinary tract infection, stable. 4. Hypertension is stable. Schedule for a peripherally inserted central catheter line, and will treat as an outpatient with cefepime. 5. Diarrhea, improving, stable LEVEL OF DOCUMENTATION: 25 minutes. cc: Bryant Byrne MD
[2019-01-14] MEDS: FISH OIL CONCENTRATE PO SCH (20:48)
[2019-01-14] MEDS: DEPAKOTE ER PO SCH (20:48)
[2019-01-14] MEDS: SYNTHROID PO SCH (20:48)
[2019-01-14] MEDS: APRESOLINE PO SCH (20:48)
[2019-01-14] MEDS: ZYRTEC PO SCH (20:49)
[2019-01-14] MEDS: DESYREL PO SCH (20:49)
[2019-01-14] MEDS: SEROQUEL PO SCH (20:49)
[2019-01-14] MEDS: PREMARIN PO SCH (20:49)
[2019-01-14] MEDS: LEVAQUIN 500 MG/D5W 500 MG/100 ML IVPB IV SCH (20:49)
[2019-01-14] MEDS: NS 1,000 ML IV SCH (20:49)
[2019-01-14] MEDS ORDERED: LASIX IV ONE (21:55)
[2019-01-14] MEDS: IMODIUM PO PRN (22:34)
--- NOTE | 2019-01-14 23:50 | PULMONOLOGY PROGRESS NOTE ---
DATE: 01/14/2019 SUBJECTIVE: The patient is awake, alert. She reports she is stronger. She is anxious to go home. She is not happy that her discharge from the hospital has been delayed. She has undergone PICC line placement. OBJECTIVE: Vital Signs: The patient has been afebrile for the last 24 hours. Blood pressure 172/92, heart rate 84, respiratory rate 16, oxygen saturation 100% on room air. HEENT: Pupils are equal and reactive. Oropharynx appears clear. Neck: Supple. Chest: Reveals bilateral rhonchi with decreased breath sounds, right base. Cardiac exam: S1, S2. Abdomen: Soft. Extremities: Reveal trace peripheral edema. IMAGING STUDIES: Chest x-ray reveals pneumonia at the left base, with smaller infiltrate at the right base. LABORATORIES: White blood count 16.1, hemoglobin 10.4, platelet count 557,000. IMPRESSION: A 68-year-old with: 1. Left lower lobe pneumonia. 2. Smaller infiltrate in the right lower lobe. 3. Negative evaluation for Mycobacterium avium complex disease on multiple cultures from bronchoscopy last year. 4. History of multifocal pseudomonal pneumonia. 5. Bipolar disorder. 6. Hyperthyroidism with recent adjustment in thyroid medication. 7. Mild fluid overload. RECOMMENDATIONS: 1. Saline lock IV fluids and give a single dose of Lasix. 2. Continue bronchial hygiene. 3. Follow up chest x-ray tomorrow. Anticipate discharge home with a course of antibiotics. 4. Consider bronchoscopy if she does not have ongoing clinical improvement. cc: MD Bryant Herron MD
[2019-01-15] MEDS: NORCO-7.5 PO PRN (03:53)
[2019-01-15] MEDS: ZOSYN 4.5 GM in NS 100 ML IV SCH ×2 (06:45→11:27)
[2019-01-15] MEDS: ZANAFLEX PO SCH (09:10)
[2019-01-15] MEDS: HYZAAR 50/12.5 MG PO SCH (09:10)
[2019-01-15] MEDS: CULTURELLE PO SCH (09:10)
[2019-01-15] MEDS: COREG PO SCH (09:10)
[2019-01-15] MEDS: CYMBALTA PO SCH (09:10)
[2019-01-15] MEDS: CELEBREX PO SCH (09:10)
[2019-01-15 11:40] VITALS: BP 136/115
[2019-01-15] MEDS: KLONOPIN PO PRN (11:45)
[2019-01-15] MEDS ORDERED: MAXIPIME 1 GM in NS 50 ML IV ONE (15:38)
--- NOTE | 2019-01-18 00:37 | DISCHARGE SUMMARY ---
ADMISSION DATE: 01/06/2019 DISCHARGE DATE: 01/15/2019 DISCHARGING DIAGNOSIS: Multilobar pneumonia, community-acquired, predominantly this time left lower lobe. SECONDARY DIAGNOSES: 1. 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 2. Hyponatremia due to dehydration. 3. Diarrhea, rule out Clostridium difficile colitis. 4. Autoimmune hepatitis. 5. Bipolar disorder. 6. Suprasellar pituitary tumor, 1.2 cm, nonsecretory without any pressure effects. 7. Chronic bronchiectasis, right middle lobe. 8. Hypertension. 9. Hyperlipidemia. 10. Hypothyroidism. 11. Multiple actinic keratosis lesions on the skin. 12. Psoriatic arthritis/rheumatoid arthritis. CONSULTS: Dr. Earl. PROCEDURES: PICC line on the left side. BRIEF HISTORY: Please see the H and P that was done on 01/06/2019. In brief, she is a 68-year- old white female with above problems was admitted directly from my office due to cough, left-sided chest pain. Clinically, she had extensive pleurisy and crackles. Chest x-ray is multilobar pneumonia. The patient is immunocompromised with autoimmune hepatitis on immunosuppressive drugs as well as splenectomy. HOSPITAL COURSE: 1. She was given IV Zosyn and Levaquin along with IV fluids for hyponatremia. 2. Blood pressure is substantially elevated. Requiring clonidine and hydralazine as needed. 3. Altered mental status due to exacerbation of bipolar disorder. 4. Extensive pain requiring [place]. 5. Diarrhea from possible antibiotics. Patient was given probiotics. Further stool cultures were ruled out for C diff infection. White cell count was high slowly coming down. Chest x-ray was not able to improve. Further CT scan of the chest showed dense left lower lobe pneumonia. She is not able to productive any cough. Dr. Earl recommended outpatient 2 weeks of IV antibiotics. Urine cultures grow E coli which is sensitive to Zosyn. The patient was given combination of Zosyn and Levaquin. The patient is adamant to go home and PICC line was placed on the left side, arranged outpatient antibiotics with cefepime. LABS: CBC: White cell count 16, hematocrit 31, platelets 557,000. PT 14, INR 1.0. ABG on room air, pH is 7.37, pCO2 of 42, PO2 of 69. SMA-7: Sodium 141, potassium 4.1, chloride 105, BUN 14, creatinine 0.9. Glucose 8.8. Urine cultures sensitive to Escherichia coli. C diff stool were negative. DISCHARGE INSTRUCTIONS: 1. Pneumococcal vaccine 13 was given 02/20/2018. 2. Outpatient home health care. 3. Synthroid 175 mcg daily, Seroquel 200 at bedtime, Hyzaar 2 tablets in the morning, Premarin 0.4 daily, Depakote 750 in the evening, cetirizine 10 in the morning, hydralazine 100 daily, trazodone 100 at bedtime, Coreg 6.25 p.o. b.i.d., Celebrex 200 p.o. b.i.d., [place] 7.5 q.6 hours p.r.n. pain, Zanaflex 4 mg b.i.d., duloxetine 20 mg daily. Outpatient cefepime 1 g IV q.12 hours for 2 weeks and outpatient laboratory workup. Obviously the is going to take care of the patient. 4. Follow up in my office in 10 days. cc: MD Anival Aguilar MD
== END 2019-01-15 17:22 | disposition home health service (06) | DRG 191 ==
LOC: DIRADM 16:37 → 3N 18:15
PROVIDERS: ADMIT Internal Medicine; ATTEND Internal Medicine
CPT/HCPCS: 36569; 71020; 71046; 71260; 80048; 80053; 82805; 83880; 84439; 84443; 84484; 85025; 85027; 85610; 85651; 86140; 87045; 87046; 87077; 87088; 87186; 87205; 87324; 87449; 89055; 94640; 94760; 94761; 94799; A9270; J0360; J0692; J1170; J1956; J2543; J2920; J2930; J7030; Q9967